=== PATIENT | female | born 1950 | race Caucasian/White ===

== ENCOUNTER 2024-12-24 10:26 | Emergency (ER) | payer MEDICARE, BC, SELFPAY ==
--- OUTSIDE RECORDS SUMMARY | 2024-12-24 10:34 | XMS_ITS | Clinical Summary ---
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 Gender Identity Not on file Sexual Orientation Not on file Plan of Treatment Health Maintenance Due Date Last Done Comments DTAP/TDAP/TD VACCINES (1 - Tdap) 1969 BREAST CANCER SCREENING 1990 COLORECTAL SCREENING 12/16/1995 Colorectal Cancer Screening 12/16/1995 FIT-DNA Q 3 years 12/16/1995 FIT/FOBT Q 1 year 12/16/1995 Flex Sig/CT Colonography Q 5 years 12/16/1995 PNEUMOCOCCAL VACCINE 50+ YEARS (1 of 1 - PCV) 12/16/19 ZOSTER VACCINE (1 of 2) 2000 OSTEOPOROSIS SCREENING 12/16/2015 INFLUENZA VACCINE (#1) 2024 RSV VACCINE (60+ or ) (1 - 1-dose 75+ series) 2025 Care Teams Coater Hand Relationship Specialty Start Date End Date Rickey Yee MD [address] [place] [address] PCP - General 06/10/04
--- OUTSIDE RECORDS SUMMARY | 2024-12-24 10:34 | XMS_ITS | Encounter Summary ---
Author Organization [facility] Address [address] [place] [address] Care Team Providers Care Chancellor Name Role Phone Rickey Yee MD Primary Care Provider [phone] Encounter Details Date Type Department Care Team (Late st Contact Info) Description 06/10/2004 Outpatient Historical [facility] [address] [place] [address] Duy Keane MD [address] [address] PAIN IN LIMB (Primary Dx) Social History Tobacco Use Types Packs/Day Years Used Date Smoking Tobacco: Never Assessed Comments Unknown Sex and Gender Information Value Date Recorded Sex Assigned at Not on file 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
--- OUTSIDE RECORDS SUMMARY | 2024-12-24 10:34 | XMS_ITS | Encounter Summary ---
Author Organization [facility] Address [address] [place] [address] Care Team Providers Care Almond Roaster Name Role Phone Rickey Yee MD Primary Care Provider [phone] Encounter Details Date Type Department Care Team (Late st Contact Info) Description 06/10/2004 Outpatient Historical [facility] Infectious Disease 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
--- OUTSIDE RECORDS SUMMARY | 2024-12-24 10:34 | XMS_ITS | Patient Health Record ---
Author Organization [facility] Address [address] [place] [address] Care Team Providers Care Transformer Inspector Name Role Phone Mcgowan, Wilner Primary Care Provider Dilip Garcia Unavailable [phone] Ranjana Pagan Unavailable [phone] Allergies Allergen (clinical drug ingredient) Drug/Non Drug Allergy documented on EMR Reaction Allergy Type Onset Date Status Petroleum Jelly Unknown Drug Allergy A ctive nickel Nickel Unknown Allergy Active pseudoephedrine Pseudoephedrine anaphylaxis Drug Allergy Active Results Component Value Reference Range Notes Electron Beam Photo Mask Maker 30 days Reviewed date:12/25/2023 12:04:24 PM Interpretation: Performing Lab: Notes/Report: Electron Beam Photo Mask Maker 30 days Reviewed date:12/25/2023 12:04:24 PM Interpretation: Performing Lab: Notes/Report: Electron Beam Photo Mask Maker 30 days Reviewed date:12/25/2023 12:04:24 PM Interpretation: Performing Lab: Notes/Report: Reason For Referral No Information Medications Medication SIG (Take, Route, Frequency, Duration) Notes Start Date End Date Status Famotidine 20 MG Tablet 1 tablet Orally BID Active Lisinopril 2.5 mg Tablet 1 tablet orally twice a day; Duration: 30 days Active Carvedilol 3.125 mg Tablet Take 1 tablet by mouth twice a day with food; Duration: 30 Active Aspirin 81 81 MG Tablet Delayed Release 1 tablet Orally Once a day PRN Active Social History Tobacco Use: Social History Observation Description Date Details (start date - stop date) Never Smoker NA - NA Social History Drugs/Alcohol: Social Info Question Answer Notes Caffeine Intake: 1-2 cups per day Tobacco Use: Social Info Question Answer Notes Tobacco Control (Standard) Tobacco use: Nonsmoker Additional Details Category Social Info Options Details Drugs/Alcohol: Do you drink alcohol? No Migrated Social History Migrated Social History Smoking Status : Never used tobacco , History of tobacco use : zzMigrated Social History Migrated Socia l History Smoking Status:Never smoked tobacco (finding) Section Notes: caffeine pos alcohol neg caffeine pos alcohol neg caffeine pos alcohol neg caffeine pos alcohol neg caffeine pos alcohol neg Problems Problem Type SNOMED Code ICD Code Onset Dates Problem Status W/U Status Risk Notes Problem Ischemic cardiomyopathy (353542877) Ischemic cardiomyopathy (I25.5) Active confirmed Problem Constipation (80516702) Constipation, unspecified constipation type (K59.00) Active confirmed Problem Hyperlipidaemia (83158161) Hyperlipidemia, unspecified hyperlipidemia type (E78.5) Active confirmed Problem Old myocardial infarction (9210465) History of RI (myocardial infarction) (I25.2) Active confirmed Problem Hypertension (70641541) HTN (hypertension) (I10) Active confirmed Problem History of placement of stent for coronary artery disease (situation) (260909237) History of coronary artery stent placement (Z95.5) Active confirmed Problem Atherosclerotic heart disease of [place] coronary artery without angina pectoris (083535584818338) Arteriosclerosis of coronary artery (I25.10) Active confirmed Problem Acute non-ST segment elevation myocardial infarction (850237396) Non-ST elevated myocardial infarction (non-STEMI) (I21.4) Active confirmed Vital Signs Heart Rate 60 /min 09/09/2024 Blood pressure diastolic 90 mm Hg 09/09/2024 Oximetry 98 % 09/09/2024 Height-cm 165.1 cm 09/09/2024 Weight-kg 74.07 kg 09/09/2024 Height 65 in 09/09/2024 Blood pressure systolic 164 mm Hg 09/09/2024 Weight 163.3 lbs 09/09/2024 BMI 27.17 kg/m2 09/09/2024 Encounters Encounter Location Date Provider Diagnosis [facility] [address] [place] [address] 09/09/2024 Dilip Cr Arteriosclerosis of coronary artery I25.10 ; History of coronary artery stent placement Z95.5 ; HTN (hypertension) I10 and Hyperlipidemia, unspecified hyperlipidemia type E78.5 [facility] [address] [place] [address] 03/04/2024 [place] Cr Arteriosclerosis of coronary artery I25.10 ; History of coronary artery stent placement Z95.5 ; HTN (hypertension) I10 and Hyperlipidemia, unspecified hyperlipidemia type E78.[address] [place] [address] 12/25/2023 Ranjana Pagan Near syncope R55 ; Arteriosclerosis of coronary artery I25.10 ; History of RI (myocardial infarction) I25.2 ; Hyperlipidemia, unspecified hyperlipidemia type E78.5 ; HTN (hypertension) I10 ; History of coronary artery stent placement Z95.5 and Ischemic cardiomyopathy I25.[address] [place] [address] [facility] [address] [place] [address] 05/26/2024 [place] Cr Assessments Encounter Date Diagnosis (ICD Code) Assessment Notes Treatment Notes Treatment Clinical Notes Section Notes 12/25/2023 Near syncope (ICD-10 - R55) Device was applied today. Patient was instructed on the number of days to wear device. In order to record symptoms patient must follow the prompts on the provided smart phone. Patient was instructed that the device is water resistant. They can wear the device in the shower as long as the device itself does not become submerged in water. There are extra patches in the kit provided, to allow for additional dressing changes should dressing become loose. The importance of keeping the device back was stressed. Patient will need to replace the device into the box and take this to the nearest UPS drop box. We will contact them with the results once the report is finalized. Will go ahead and obtain cardiac monitor technician to ensure that we do not have any arrhythmias contributing to patient's symptoms. Worsening cardiac complaints to report reviewed. Patient was asked to keep a log of blood pressure and heart rate and to keep a diary of her symptoms. 03/04/2024 Arteriosclerosis of coronary artery (ICD-10 - I25.10) 09/09/2024 Arteriosclerosis of coronary artery (ICD-10 - I25.10) 09/09/2024 History of coronary artery stent placement (ICD-10 - Z95.5) 03/04/2024 History of coronary artery stent placement (ICD-10 - Z95.5) 12/25/2023 Arteriosclerosis of coronary artery (ICD-10 - I25.10) 12/25/2023 History of RI (myocardial infarction) (ICD-10 - I25.2) 03/04/2024 HTN (hypertension) (ICD-10 - I10) 09/09/2024 HTN (hypertension) (ICD-10 - I10) 09/09/2024 Hyperlipidemia, unspecified hyperlipidemia type (ICD-10 - E78.5) 12/25/2023 Hyperlipidemia, unspecified hyperlipidemia type (ICD-10 - E78.5) 03/04/2024 Hyperlipidemia, unspecified hyperlipidemia type (ICD-10 - E78.5) 12/25/2023 HTN (hypertension) (ICD-10 - I10) 12/25/2023 History of coronary artery stent placement (ICD-10 - Z95.5) 12/25/2023 Ischemic cardiomyopathy (ICD-10 - I25.5) Improved with medical therapies and revascularization last echocardiogram showed normalization of EF 03/04/2024 Other We will stop he r Plavix after she finishes the current prescription. Otherwise we will continue risk factor modification and medical therapy. I will see her back in the office in 6 months or sooner as symptoms warrant. 09/09/2024 Other We will continu e her current medical regimen. I will see her back in the office in 8 months or sooner as symptoms warrant. Plan Of Treatment Next Appt Details Provider Name:Dilip Hankins, 1 07/12/2024 09:00:00 AM, [address] [place] [address], [phone], Insurance Providers Payer Name Payer Address Payer Phone Subscriber Number Group Number Insured Name Patient Relationship to Insured Coverage Start Date Coverage End Date [place] [address] [place] [phone] [id number] Michelle Dugan Self - patient is the insured BCBS Supplement [address] [place] [address] [id number] Michelle Dugan Self - patient is the insured 0 Medical (General) History Medical History History ICD Code measles, mumps, chicken pox bladder infections back trouble hypertension cad Covid vaccine - yes Surgical History Surgery Date(Month/Year) total hysterectomy 1982 [facility] - IMPRESSIONS: 1. Two -vessel coronary artery disease involving the left anterior descending diagonal system and right coronary artery. 2. Successful percutaneous coronary intervention of the diagonal and left anterior descending. 3. Mild ischemic cardiomyopathy. 03/27/23 Hospitalization History Reason Date(Month/Year) - CP that started two day s ago and has been pretty constant but has periods where it is worse. Pt states a dull ache in her chest and heaviness in her arms with an ache up into her neck and face. Pt states SOB with the pain as well as nausea. 03/26-09/15
[2024-12-24 10:41] VITALS: BP 181/98; PULSE 69; RESP 16; TEMP 36.3; O2SAT 98; BMI 24.1
[2024-12-24 11:17] VITALS: PULSE 69; O2SAT 97
--- NOTE | 2024-12-24 11:24 | CTR_ITS ---
PROCEDURE INFORMATION: Exam: CT Head Without Contrast Exam date and time: 12/24/2024 11:37 AM Age: 74 years old Clinical indication: Injury or trauma; Fall; Blunt trauma (contusions or hematomas) TECHNIQUE: Imaging protocol: Computed tomography of the head without contrast. Radiation optimization: All CT scans at this facility use at least one of these dose optimization techniques: automated exposure control; mA and/or kV adjustment per patient size (includes targeted exams where dose is matched to clinical indication); or iterative reconstruction. COMPARISON: No relevant prior studies available. RADIATION DOSE METRICS: Total DLP (mGy-cm): 1043.98 FINDINGS: Brain: There is patchy hypoattenuation in the periventricular white matter. While nonspecific, this is favored to represent chronic small vessel ischemic change. There is mild cerebral volume loss with associated mild prominence of the CSF spaces. No evidence of acute intracranial hemorrhage. No extra-axial fluid collection. No intracranial mass or mass effect. No midline shift. Cerebral ventricles: The ventricles appear minimally enlarged, in proportion to the mild parenchymal volume loss. Paranasal sinuses: Visualized paranasal sinuses are normally aerated and clear throughout. Mastoid air cells: Visualized mastoid air cells are clear. Bones: Osseous calvarium appears intact. No fracture is seen. Soft tissues: The visualized superficial soft tissues have a normal appearance. Vasculature: There is calcific atherosclerosis within the cavernous carotids. CT/CT head wo con* [id number] IMPRESSION: 1. No CT evidence of acute intracranial pathology. 2. Chronic senescent changes as above.
--- NOTE | 2024-12-24 11:57 | ED_ITS ---
HPI - Wound/Laceration General: Chief Complaint: Wound/Laceration Stated Complaint: fall Time Seen by Provider: 12/24/24 11:16 Source: patient Mode of arrival: ambulatory Limitations: no limitations History of Present Illness: 74-year-old female who states she trippe d in a parking lot before arrival. She did not hit her head she does have a small laceration to the right side of her forehead. She denies any loss conscious denies any severe headache she is on blood thinners she denies any neck pain. Bleeding is controlled at this time Associated symptoms: Denies chills, fever(s), nausea or vomiting Related Data Allergies Allergy/AdvReac Type Severity Reaction Status Date / Time acetaminophen (From Sine-Aid) Allergy ALGY-Anaphy Verified 12/24/24 10:48 laxis pseudoephedrine (From Allergy ALGY-Anaphy Verified 12/24/24 10:48 Sine-Aid) laxis Review of Systems Const: Denies: fever(s), chills, body aches or change in appetite Eyes: Denies: blurry vision or eye discomfort ENMT: Denies: throat pain or dental pain Card: Denies: chest pain Resp: Denies: dyspnea GI: Denies: abdominal pain, nausea, vomiting or diarrhea Musc: Denies: neck pain or back pain Skin/Breast: Denies: rash Neuro: Denies: headache(s) Physical Exam Const: COMMON NORMALS: no acute distress, patient oriented x3 and healthy appearing HENMT: COMMON NORMALS: normocephalic HEAD & SCALP: normocephalic OTHER: 2 cm laceration to right forehead Eye: COMMON NORMALS: conjunctivae normal CONJUNCTIVA: Yes conjunctivae normal Neck/C-Spine: COMMON NORMALS: full ROM and supple Chest: COMMONS NORMALS: normal inspection of the chest Resp: COMMON NORMALS: normal respiratory effort Cardio: COMMON NORMALS: regular rate, regular rhythm and No murmurs present (Cardio) RATE: regular rate RHYTHM: regular rhythm Extremity: COMMON NORMALS: normal to inspection and full ROM Neuro: COMMON NORMALS: patient oriented x3, moves all extremities and no focal motor deficits Psych: COMMON NORMALS: mental status grossly normal, Normal thought process present and cooperative THOUGHT PROCESS: Normal thought process present Skin: COMMON NORMALS: no rashes or lesions noted and no wounds GENERAL SKIN EXAM: no rashes or lesions noted Procedures Laceration Laceration 1: Site: face Side (If applicable): right Size (cm): 2 Description: linear Depth: simple, single layer Pre-repair: wound explored and irrigated extensively Skin layer closed with: other (dermabond) Course Vital Signs: Vital signs: Vital Signs Temperature 97.4 F L 12/24/24 10:41 Pulse Rate 69 12/24/24 11:17 Respiratory Rate 16 12/24/24 10:41 Blood Pressure 181/98 12/24/24 10:41 Pulse Oximetry 97 12/24/24 11:17 Oxygen Delivery Me thod Room Air 12/24/24 11:17 MDM - Wound/Laceration Medical Decision Making Patient presents here with head injury from a fall does have a laceration was repaired here with tissue adhesive CT scan is normal patient stable for discharge follow-up PCP return if worsening. Medical Records I reviewed the patient's medical records. Lab Data Radiology Impressions Head CT 12/24/24 11:[address]: [address] evidence of acute intracranial pathology. 2. Chronic senescent changes as above. All radiology interpretation(s) finalized by discharge Discharge Plan Discharge Patient Disposition: Home Clinical Impression: Laceration of head Condition: Stable Discharge Orders: Discharge ED (Routine); Ordered 12/24/24 Ordered By: Luis Antonio Kenney Discharge Diet: Advance as tolerated Discharge Activity: Resume usual activity Patient Instructions: Head Laceration (ED), Skin Adhesive Care (ED) Print Language: Senegalese Coding Level of Care Code ED Virtual Reality Specialist for Lennie Campos
[2024-12-24] MEDS: tetanus-dipt-pertussis 0.5 mL SDV IM (12:12)
[2024-12-24 12:50] VITALS: BP 115/72; PULSE 67; O2SAT 94
== END 2024-12-24 12:35 | disposition home or self-care (01) ==
PROVIDERS: Emergency Provider Emergency Medicine
DX: S01.81XA Laceration without foreign body of other part of head, initial encounter (principal); W01.0XXA Fall on same level from slipping, tripping and stumbling without subsequent striking against object, initial encounter
CPT/HCPCS: 12011; 70450; 90471; 90715; 99284